=== PATIENT | female | born 1970 | race Caucasian/White ===

== ENCOUNTER 2017-06-17 19:32 | Emergency (ER) | payer OTHER ==
[~2017-06-17] VITALS: Ht 154.9 cm; Wt 96.8 kg
[~2017-06-17 19:32] MED LIST: ALBU8.5H8 IH; CITA20TA9 PO; LEVO75 PO; LISI-660 PO; METF500T4 PO; OXYC-158 PO
[2017-06-17] MEDS ORDERED: CHOL20004 PO (20:01)
[2017-06-17] MEDS ORDERED: LISI2.5T2 PO (20:01)
[2017-06-17] MEDS ORDERED: CITA40TA6 PO (20:01)
[2017-06-17] MEDS ORDERED: METF10002 PO (20:01)
[2017-06-17] MEDS ORDERED: RISP2 PO (20:01)
[2017-06-17] MEDS ORDERED: CYCL5TAB PO (20:01)
[2017-06-17] MEDS ORDERED: TIZA2TAB4 PO (20:01)
[2017-06-17] MEDS ORDERED: LAMO200T7 PO (20:01)
[2017-06-17] MEDS ORDERED: GLIP5TAB11 PO (20:01)
[2017-06-17 20:02] LABS: GLUCOSE,POINT OF CARE 328 MG/DL (70-110)
[2017-06-17 20:49] LABS: ANION GAP 13 mmol/L (8-16); CALCIUM, TOTAL 9.6 mg/dL (8.8-10.5); CARBON DIOXIDE 24 mmol/L (22-29); CHLORIDE 99 mmol/L (98-107); CREATININE 0.58 mg/dL (0.60-1.30); GLOMERULAR FILTR. RATE CALC > 60 mL/min (>60); POTASSIUM 3.7 mmol/L (3.5-5.1); SODIUM SERUM 136 mmol/L (136-145); UREA NITROGEN, BLOOD 5 mg/dL (7-18)
[2017-06-17 20:51] LABS: BASOPHILS % (AUTO) 0.3 % (0.0-2.0); EOSINOPHILS % (AUTO) 1.4 % (1.0-6.0); HEMATOCRIT 46.7 % (36-46); HEMOGLOBIN 16.5 g/dL (12.0-16.0); LYMPHOCYTES # (AUTO) 1.4 K/uL (1.0-4.8); LYMPHOCYTES % (AUTO) 16.4 % (22.0-44.0); MEAN CORPUSCULAR HGB CONC 35.4 G/dL (31.0-37.0); MEAN CORPUSCULAR VOLUME 87 fL (80-100); MONOCYTES # (AUTO) 0.4 K/uL (0.1-1.0); MONOCYTES % (AUTO) 4.4 % (2.0-9.0); NEUTROPHILS # (AUTO) 6.5 K/uL (1.8-7.7); NEUTROPHILS % (AUTO) 77.5 % (40.0-70.0); PLATELET COUNT (AUTO) 206 K/uL (150-450); RED BLOOD CELL COUNT(AUTO) 5.34 MIL/uL (4.00-5.20); RED CELL DISTRIBUTION WIDTH 13.5 % (11.5-14.5); WHITE BLOOD COUNT (AUTO) 8.4 K/uL (4.5-11.0)
[2017-06-17 20:55] LABS: ALANINE AMINOTRANSFERASE 44 U/L (12-78); ALBUMIN 4.4 g/dL (3.4-5.0); ASPARTATE AMINOTRANSFERASE 19 U/L (15-37); BILIRUBIN,TOTAL 2.1 mg/dL (0.1-1.0); CREATINE KINASE, TOTAL 56 U/L (26-192); TOTAL PROTEIN, SERUM 8.5 g/dL (6.4-8.2)
[2017-06-17 21:12] LABS: B-TYPE NATRIURETIC PEPTIDE < 5 pg/mL (0-100)
[2017-06-17 22:39] VITALS: BP 132/72
[2017-06-17] MEDS ORDERED: OxyCODONE HCL/ACETAMINOPHEN 5-325 MG TABLET PO ONE (23:00)
[2017-06-17] MEDS ORDERED: SITA100 PO (23:04)
[2017-06-17] MEDS ORDERED: ADV100 IH (23:04)
[2017-06-17] MEDS ORDERED: FEXO-58 PO (23:04)
== END 2017-06-17 23:18 | disposition home or self-care (01) ==
LOC: EMS 19:33
DX: J06.9 Acute upper respiratory infection, unspecified (principal); J40 Bronchitis, not specified as acute or chronic; E11.65 Type 2 diabetes mellitus with hyperglycemia; E03.9 Hypothyroidism, unspecified; M54.5 Low back pain; G89.29 Other chronic pain; Z88.8 Allergy status to other drugs, medicaments and biological substances
CPT/HCPCS: 82962; 87040; 93005; 99285

== ENCOUNTER 2019-04-04 08:22 | Emergency (ER) | payer OTHER ==
[~2019-04-04] VITALS: Ht 154.9 cm; Wt 100.0 kg
[~2019-04-04 08:22] MED LIST changes: +ADV100 IH; +CHOL20004 PO; -CITA20TA9 PO; +CITA40TA6 PO; +CYCL5TAB PO; +FEXO-58 PO; +GLIP5TAB11 PO; +LAMO200T7 PO; -LISI-660 PO; +LISI2.5T2 PO; +METF-446 PO; -METF500T4 PO; -OXYC-158 PO; +RISP2 PO; +SITA100 PO; +TIZA2TAB5 PO
[2019-04-04 08:34] LABS: GLUCOSE,POINT OF CARE 362 MG/DL (70-110)
[2019-04-04] MEDS ORDERED: PANT20TA12 PO (08:43)
[2019-04-04] MEDS ORDERED: RISP1 PO (08:43)
[2019-04-04] MEDS ORDERED: PERCT PO (08:43)
[2019-04-04] MEDS ORDERED: LAMO100 PO (08:43)
[2019-04-04] MEDS ORDERED: METO-296 PO (08:43)
[2019-04-04] MEDS ORDERED: ALPR0.5T8 PO (08:43)
[2019-04-04] MEDS ORDERED: CYCL10 PO (08:43)
[2019-04-04 08:50] VITALS: BP 121/79
== END 2019-04-04 09:14 | disposition home or self-care (01) ==
LOC: EMS 08:23
DX: J40 Bronchitis, not specified as acute or chronic (principal); E11.9 Type 2 diabetes mellitus without complications; F32.9 Major depressive disorder, single episode, unspecified; E03.9 Hypothyroidism, unspecified; Z88.5 Allergy status to narcotic agent; Z88.8 Allergy status to other drugs, medicaments and biological substances; Z79.899 Other long term (current) drug therapy; Z79.84 Long term (current) use of oral hypoglycemic drugs